=== PATIENT | male | born 1980 | race Caucasian/White ===

== ENCOUNTER 2024-10-17 11:27 | Outpatient (CLI) | payer MEDICARE, MEDICAID ==
--- NOTE | 2024-10-19 05:27 | RADIOLOGY REPORT ---
CLINICAL INDICATION: LOW BACK PAIN, UNSPECIFIED, HAMSTRING TEAR L, L KNEE PAIN TECHNIQUE: Multiplanar, multisequence MRI of the left knee was performed without contrast. Contrast: None. COMPARISON: None FINDINGS: Joint space and synovium: There is no joint effusion, popliteal cyst or synovial thickening. Bones and articular cartilage: There is no evidence of acute fracture or bone marrow edema. The ali gnment is normal. The articular cartilage is preserved Menisci: The medial meniscus is intact. The lateral meniscus is intact. Tendons and ligaments: The tendons in the posterior knee are intact. The extensor mechanism is inta ct. The anterior cruciate ligament is intact. The posterior cruciate ligament is intact. The m edial collateral ligament and the lateral collateral ligament stabilizing complex are intact. Muscles: Regional muscles are preserved in bulk and signal characteristics. Other: Trace fluid in the deep infrapatellar bursa. Edema in the quadriceps fat pad. IMPRESSION: 1. Edema in the quadriceps fat pad suggestive of impingement. 2. Trace deep infrapatellar bursitis. 3. No meniscus or ligament injury. No acute osseous injury.
--- NOTE | 2024-10-19 06:26 | RADIOLOGY REPORT ---
EXAM: MR MRI LOWER EXTREMITY LEFT CLINICAL INDICATION: LOW BACK PAIN, HAMSTRING TEAR, KNEE JOINT PAIN COMPARISON: None TECHNIQUE: Multiplanar, multisequence MRI of the left femur (thigh ) was performed without intravenou s contrast. Contrast: None INTERPRETATION: Bones: There is no fracture or bone marrow edema. There is no marrow replacing lesion. Soft tissues: There is no muscle atrophy. There is no soft tissue mass or fluid collection. The co ntralateral leg shows susceptibility artifact in the mid thigh soft tissues. IMPRESSION: 1. No evidence of hamstring or other tendon, or bone injury in the left lower extremity.
== END 2024-10-17 23:59 | disposition home or self-care (01) ==
LOC: MRI02 11:27
PROVIDERS: ATTEND Family Medicine Sports Medicine
DX: S76.312A Strain of muscle, fascia and tendon of the posterior muscle group at thigh level, left thigh, initial encounter (principal); M54.50 Low back pain, unspecified; M25.562 Pain in left knee; R60.0 Localized edema; X58.XXXA Exposure to other specified factors, initial encounter; Y93.89 Activity, other specified; Y92.89 Other specified places as the place of occurrence of the external cause; Y99.8 Other external cause status
CPT/HCPCS: 73718; 73721